=== PATIENT | female | born 2005 | race Caucasian/White ===

== ENCOUNTER 2024-05-26 08:30 | Outpatient (CLI) | payer BC ==
[2024-05-26 09:22] LABS: Hematocrit 41.5 % (34.9-44.5)
[2024-05-26 09:27] LABS: BHCG - Serum Negative (NEGATIVE); Pregs Control Background? CLEAR/WHITE (CLR/WHITE); Pregs Control Bar Appear? YES (CONTROL BAR)
== END 2024-05-26 08:31 | disposition home or self-care (01) ==
LOC: CSHLAB 08:30
PROVIDERS: ATTEND Otolaryngology Plastic Surgery within the Head & Neck
DX: Z01.812 Encounter for preprocedural laboratory examination (principal); J34.2 Deviated nasal septum; J34.3 Hypertrophy of nasal turbinates; J32.4 Chronic pansinusitis
CPT/HCPCS: 84703; 85014

== ENCOUNTER 2024-05-27 08:14 | Day surgery (SDC) | payer BC ==
[2024-05-26 09:26] VITALS: BMI 23.7
[2024-05-27] MEDS ORDERED: AFRIN NASAL MIST 15 ML BOT ONE (12:12)
[2024-05-27] MEDS ORDERED: PROPOFOL 20 ML ONE (12:15)
[2024-05-27] MEDS ORDERED: Fentanyl 250 MCG/5 ML VIAL ONE (12:15)
[2024-05-27] MEDS ORDERED: Ondansetron PF 4 MG/2 ML Vial ONE (12:16)
[2024-05-27] MEDS ORDERED: Lidocaine 1% PF 5 ML VIAL ONE (12:16)
[2024-05-27] MEDS ORDERED: Dexamethasone 4 mg/ml Vial ONE (12:16)
[2024-05-27] MEDS ORDERED: Sevoflurane 250 ML INH ANEST BOTTLE ONE (13:50)
[2024-05-27] MEDS ORDERED: HYDROcodone/Acetaminophen 5/325 mg Tablet ONE (15:25)
== END 2024-05-27 16:00 | disposition home or self-care (01) ==
LOC: CSHSDC 08:14
PROVIDERS: ATTEND Otolaryngology Plastic Surgery within the Head & Neck
PROC: 09TV8ZZ Resection of Left Ethmoid Sinus, Via Natural or Artificial Opening Endoscopic (ICD-10-PCS; principal; 2024-05-27)
PROC: 09TL8ZZ Resection of Nasal Turbinate, Via Natural or Artificial Opening Endoscopic (ICD-10-PCS; principal; 2024-05-27)
PROC: 09SM4ZZ Reposition Nasal Septum, Percutaneous Endoscopic Approach (ICD-10-PCS; principal; 2024-05-27)
PROC: 099R8ZZ Drainage of Left Maxillary Sinus, Via Natural or Artificial Opening Endoscopic (ICD-10-PCS; principal; 2024-05-27)
PROC: 09BT8ZZ Excision of Left Frontal Sinus, Via Natural or Artificial Opening Endoscopic (ICD-10-PCS; principal; 2024-05-27)
DX: J34.2 Deviated nasal septum (principal); J34.3 Hypertrophy of nasal turbinates; J01.91 Acute recurrent sinusitis, unspecified; Z79.899 Other long term (current) drug therapy
CPT/HCPCS: J1100; J2405; J2704; J3010